=== PATIENT | female | born 1960 | race Two or more races ===

== ENCOUNTER 2020-12-26 06:53 | Inpatient (IN) | payer OTHER ==
[~2020-12-26] VITALS: Ht 177.8 cm; Wt 112.7 kg
[2020-12-26 07:28] LABS: Basophils # (auto) 0.1 10 ^3/uL (0-0.2); Eosinophils # (auto) 0.3 10 ^3/uL (0-0.8); Eosinophils % (auto) 4.7 % (0.0-7.0); Hematocrit 37.1 % (36.0-46.0); Hemoglobin 12.7 g/dL (12.2-16.2); Lymphocytes # (auto) 2.8 10 ^3/uL (0.4-5.4); Lymphocytes % (auto) 43.5 % (10.0-50.0); Mean Corpuscular Hemoglobin 30.9 pg (28.0-32.0); Mean Corpuscular Hgb Conc. 34.2 g/dL (32.0-36.0); Mean Corpuscular Volume 90.3 fL (80.0-100.0); Monocytes # (auto) 0.5 10 ^3/uL (0-1.3); Monocytes % (auto) 7.7 % (0.0-12.0); Neutrophils # (auto) 2.8 10 ^3/uL (1.6-8.6); Neutrophils % (auto) 43.1 % (37.0-80.0); Nucleated Red Blood Cells % 0.1 %; Red Blood Cells 4.11 10^6/uL (4.0-5.20); Red Cell Distribution Width 14.7 % (11.8-14.3); White Blood Cell 6.4 10^3/uL (4.4-10.8)
[2020-12-26 07:49] LABS: Salicylate < 1.7 mg/dL (2.8-20.0)
[2020-12-26 07:52] LABS: Acetaminophen 40.3 ug/mL (10-30)
[2020-12-26 07:54] LABS: Potassium 4.1 mmol/L (3.5-5.1)
[2020-12-26 08:04] LABS: Urine Bacteria FEW /hpf (None Seen); Urine Blood Negative /uL (Negative); Urine Mucus FEW (None Seen); Urine Specific Gravity 1.034 (1.001-1.035); Urine WBC 9 /hpf (0 - 5)
[2020-12-26 08:05] LABS: Albumin 3.2 g/dL (3.4-5.0); BUN/Creatinine Ratio 26.7; Bilirubin, Total 0.4 mg/dL (0.2-1.0); Calcium 8.3 mg/dL (8.5-10.1); Total Protein 6.6 g/dL (6.4-8.2)
[2020-12-26] MEDS ORDERED: ACETYLCYSTEINE ORAL for CIN 20%(200MG/ML) 4ML PO ONE (08:15)
[2020-12-26] MEDS ORDERED: SODIUM CHLORIDE 0.9% 1,000 ML IV ONE ×2 (08:15)
[2020-12-26 08:19] LABS: Alcohol, Urine < 3.0 mg/dL (0-10); Amphetamine Screen, Urine NEGATIVE (NEGATIVE); Barbiturate Scree,Urine NEGATIVE (NEGATIVE); Benzodiazephine Screen, Urine NEGATIVE (NEGATIVE); Cannabinoid Screen, Urine NEGATIVE (NEGATIVE); Cocaine Screen, Urine NEGATIVE (NEGATIVE); Opiate Scree,Urine NEGATIVE (NEGATIVE); Phencyclidine Screen, Urine NEGATIVE (NEGATIVE)
[2020-12-26] MEDS ORDERED: cefTRIAXone 1GM/50ML D5W 50 ML IV ONE (08:30)
[2020-12-26] MEDS ORDERED: DEXTROSE (50%) 50ML SYRG IV PRN (11:15)
[2020-12-26] MEDS ORDERED: ACETAMINOPHEN 500 MG TAB PO PRN (11:15)
[2020-12-26] MEDS ORDERED: TRAZ100T3 PO (11:35)
[2020-12-26] MEDS ORDERED: QUET400T PO (11:35)
[2020-12-26] MEDS: SODIUM CHLORIDE 0.9% 1,000 ML IV SCH ×2 (11:37→20:57)
[2020-12-26 11:41] LABS: Albumin 2.9 g/dL (3.4-5.0)
[2020-12-26 11:45] LABS: Alanine Aminotransferase 18 U/L (13-56); Alkaline Phosphatase 68 U/L (45-117); Aspartate Aminotransferase 18 U/L (15-37); Bilirubin, Direct < 0.1 mg/dL (0-0.2); Bilirubin, Total 0.2 mg/dL (0.2-1.0); Total Protein 6.2 g/dL (6.4-8.2)
[2020-12-26] MEDS: ACCU-CHEK COMFORT CURVE STRIP VI SCH ×3 (11:56→20:59)
[2020-12-26 17:00] VITALS: BP 109/78
[2020-12-26 17:34] LABS: Albumin 2.8 g/dL (3.4-5.0); Bilirubin, Direct < 0.1 mg/dL (0-0.2)
[2020-12-26 17:37] LABS: Alanine Aminotransferase 17 U/L (13-56); Alkaline Phosphatase 64 U/L (45-117); Aspartate Aminotransferase 14 U/L (15-37); Bilirubin, Total 0.2 mg/dL (0.2-1.0)
[2020-12-26] MEDS: TEMAZEPAM 15 MG CAP PO PRN (21:00)
[2020-12-26 22:53] VITALS: BP 120/77
[2020-12-26 23:52] LABS: Alanine Aminotransferase 17 U/L (13-56); Albumin 2.8 g/dL (3.4-5.0); Aspartate Aminotransferase 13 U/L (15-37); Bilirubin, Direct < 0.1 mg/dL (0-0.2)
[2020-12-26 23:54] LABS: Alkaline Phosphatase 67 U/L (45-117); Bilirubin, Total 0.2 mg/dL (0.2-1.0)
[2020-12-27 05:00] VITALS: BP 117/76
[2020-12-27 06:21] LABS: Basophils # (auto) 0 10 ^3/uL (0-0.2); Basophils % (auto) 0.7 % (0.0-2.0); Eosinophils # (auto) 0.4 10 ^3/uL (0-0.8); Hematocrit 36.2 % (36.0-46.0); Hemoglobin 12.6 g/dL (12.2-16.2); Lymphocytes # (auto) 2.5 10 ^3/uL (0.4-5.4); Lymphocytes % (auto) 34.7 % (10.0-50.0); Mean Corpuscular Hemoglobin 30.9 pg (28.0-32.0); Mean Corpuscular Hgb Conc. 34.8 g/dL (32.0-36.0); Mean Corpuscular Volume 88.7 fL (80.0-100.0); Monocytes # (auto) 0.5 10 ^3/uL (0-1.3); Monocytes % (auto) 6.5 % (0.0-12.0); Neutrophils # (auto) 3.8 10 ^3/uL (1.6-8.6); Neutrophils % (auto) 53.1 % (37.0-80.0); Red Blood Cells 4.08 10^6/uL (4.0-5.20); Red Cell Distribution Width 14.8 % (11.8-14.3); White Blood Cell 7.2 10^3/uL (4.4-10.8)
[2020-12-27 06:37] LABS: Albumin 2.9 g/dL (3.4-5.0); Anion Gap 5 (5-15); Blood Urea Nitrogen 14 mg/dL (7-18); Calcium 8.2 mg/dL (8.5-10.1); Carbon Dioxide 25 mmol/L (21-32); Chloride 110 mmol/L (98-107); Glucose 85 mg/dL (74-106); Potassium 4.1 mmol/L (3.5-5.1); Sodium 140 mmol/L (136-145)
[2020-12-27 06:42] LABS: Alanine Aminotransferase 19 U/L (13-56); Alkaline Phosphatase 73 U/L (45-117); Aspartate Aminotransferase 15 U/L (15-37); BUN/Creatinine Ratio 21.2; Bilirubin, Direct < 0.1 mg/dL (0-0.2); Bilirubin, Total 0.4 mg/dL (0.2-1.0); GFR African American 117 mL/min; GFR Non-African American 97 mL/min; Total Protein 6.2 g/dL (6.4-8.2)
[2020-12-27] MEDS: ACCU-CHEK COMFORT CURVE STRIP VI SCH ×4 (07:00→21:14)
[2020-12-27] MEDS: PROMETHAZINE HCL 25 MG/ML 1ML IV PRN ×2 (07:01→20:34)
[2020-12-27] MEDS: SODIUM CHLORIDE 0.9% 1,000 ML IV SCH ×2 (07:15→17:15)
[2020-12-27] MEDS: cefTRIAXone 1GM/50ML D5W 50 ML IV SCH (08:51)
[2020-12-27 09:00] VITALS: BP 137/90
[2020-12-27 12:09] LABS: Albumin 2.9 g/dL (3.4-5.0)
[2020-12-27 12:14] LABS: Alanine Aminotransferase 16 U/L (13-56); Alkaline Phosphatase 75 U/L (45-117); Aspartate Aminotransferase 14 U/L (15-37); Bilirubin, Direct < 0.1 mg/dL (0-0.2); Bilirubin, Total 0.3 mg/dL (0.2-1.0); Total Protein 6.4 g/dL (6.4-8.2)
[2020-12-27 13:00] VITALS: BP 134/90
[2020-12-27] MEDS: traMADol HCL 50 MG TAB PO PRN (16:37)
[2020-12-27 17:00] VITALS: BP 124/75
[2020-12-27] MEDS ORDERED: ACETYLCYSTEINE PO FOR APAP TOX 200 MG/ML ML PO ONE (17:00)
[2020-12-27 17:50] LABS: Alanine Aminotransferase 18 U/L (13-56); Albumin 3.3 g/dL (3.4-5.0); Alkaline Phosphatase 83 U/L (45-117); Aspartate Aminotransferase 14 U/L (15-37); Bilirubin, Direct < 0.1 mg/dL (0-0.2); Bilirubin, Total 0.2 mg/dL (0.2-1.0)
[2020-12-27] MEDS: Ensure HIGH Protein Chocolate 8oz Bottle PO SCH (18:00)
[2020-12-27] MEDS: QUEtiapine FUMARATE 100 MG TAB PO SCH (21:12)
[2020-12-27] MEDS: ACETYLCYSTEINE PO FOR APAP TOX 200 MG/ML ML PO SCH (21:13)
[2020-12-27] MEDS: traZODone HCL 50 MG TAB PO SCH (21:13)
[2020-12-27 21:39] VITALS: BP 141/93
[2020-12-27 23:35] LABS: Alanine Aminotransferase 22 U/L (13-56); Aspartate Aminotransferase 12 U/L (15-37); Bilirubin, Direct < 0.1 mg/dL (0-0.2)
[2020-12-27 23:38] LABS: Alkaline Phosphatase 75 U/L (45-117); Bilirubin, Total 0.2 mg/dL (0.2-1.0); Total Protein 6.8 g/dL (6.4-8.2)
[2020-12-28] MEDS: TEMAZEPAM 15 MG CAP PO PRN ×2 (00:54→21:10)
[2020-12-28] MEDS: traMADol HCL 50 MG TAB PO PRN (01:14)
[2020-12-28] MEDS: ACETYLCYSTEINE PO FOR APAP TOX 200 MG/ML ML PO SCH ×2 (01:14→05:54)
[2020-12-28 04:34] VITALS: BP 124/91
[2020-12-28] MEDS: PROMETHAZINE HCL 25 MG/ML 1ML IV PRN ×2 (04:35→11:42)
[2020-12-28] MEDS: SODIUM CHLORIDE 0.9% 1,000 ML IV SCH ×3 (04:35→23:22)
[2020-12-28] MEDS: ACCU-CHEK COMFORT CURVE STRIP VI SCH ×4 (06:06→21:22)
[2020-12-28] MEDS: MORPHINE SULFATE INJECTION 2 MG/ML SYRG IV PRN ×4 (06:26→21:20)
[2020-12-28 07:45] LABS: Basophils # (auto) 0 10 ^3/uL (0-0.2); Basophils % (auto) 0.4 % (0.0-2.0); Eosinophils # (auto) 0.1 10 ^3/uL (0-0.8); Eosinophils % (auto) 1.2 % (0.0-7.0); Hematocrit 38.1 % (36.0-46.0); Hemoglobin 13.3 g/dL (12.2-16.2); Lymphocytes # (auto) 1.5 10 ^3/uL (0.4-5.4); Lymphocytes % (auto) 16.8 % (10.0-50.0); Mean Corpuscular Hemoglobin 31.1 pg (28.0-32.0); Mean Corpuscular Volume 88.7 fL (80.0-100.0); Monocytes # (auto) 0.5 10 ^3/uL (0-1.3); Monocytes % (auto) 6.1 % (0.0-12.0); Neutrophils # (auto) 6.5 10 ^3/uL (1.6-8.6); Neutrophils % (auto) 75.5 % (37.0-80.0); Nucleated Red Blood Cells % 0.1 %; Red Blood Cells 4.29 10^6/uL (4.0-5.20); White Blood Cell 8.6 10^3/uL (4.4-10.8)
[2020-12-28 07:55] LABS: Albumin 3.1 g/dL (3.4-5.0); Calcium 8.8 mg/dL (8.5-10.1); Potassium 3.6 mmol/L (3.5-5.1)
[2020-12-28 07:58] LABS: BUN/Creatinine Ratio 27.3
[2020-12-28 08:00] LABS: Bilirubin, Total 0.3 mg/dL (0.2-1.0)
[2020-12-28 09:00] VITALS: BP 112/70
[2020-12-28] MEDS: cefTRIAXone 1GM/50ML D5W 50 ML IV SCH (09:09)
[2020-12-28] MEDS: Ensure HIGH Protein Chocolate 8oz Bottle PO SCH ×3 (09:09→18:02)
[2020-12-28] MEDS: QUEtiapine FUMARATE 100 MG TAB PO SCH ×2 (09:31→21:09)
[2020-12-28 13:00] VITALS: BP 115/75
[2020-12-28 17:00] VITALS: BP 113/63
[2020-12-28] MEDS: traZODone HCL 50 MG TAB PO SCH (21:10)
[2020-12-28 22:00] VITALS: BP 125/79
[2020-12-29 05:00] VITALS: BP 102/69
[2020-12-29] MEDS: MORPHINE SULFATE INJECTION 2 MG/ML SYRG IV PRN ×3 (05:50→20:34)
[2020-12-29] MEDS: ACCU-CHEK COMFORT CURVE STRIP VI SCH ×4 (06:29→20:38)
[2020-12-29 06:52] LABS: Basophils # (auto) 0 10 ^3/uL (0-0.2); Basophils % (auto) 0.6 % (0.0-2.0); Eosinophils # (auto) 0.3 10 ^3/uL (0-0.8); Eosinophils % (auto) 4.3 % (0.0-7.0); Hematocrit 35.9 % (36.0-46.0); Hemoglobin 12.1 g/dL (12.2-16.2); Lymphocytes # (auto) 2.8 10 ^3/uL (0.4-5.4); Lymphocytes % (auto) 43.7 % (10.0-50.0); Mean Corpuscular Hemoglobin 30.2 pg (28.0-32.0); Mean Corpuscular Hgb Conc. 33.6 g/dL (32.0-36.0); Mean Corpuscular Volume 89.7 fL (80.0-100.0); Monocytes # (auto) 0.4 10 ^3/uL (0-1.3); Monocytes % (auto) 6.9 % (0.0-12.0); Neutrophils # (auto) 2.8 10 ^3/uL (1.6-8.6); Neutrophils % (auto) 44.5 % (37.0-80.0); Nucleated Red Blood Cells % 0.1 %; Red Cell Distribution Width 14.9 % (11.8-14.3); White Blood Cell 6.3 10^3/uL (4.4-10.8)
[2020-12-29 07:12] LABS: Potassium 4.1 mmol/L (3.5-5.1)
[2020-12-29 07:15] LABS: BUN/Creatinine Ratio 24.6; Calcium 8.3 mg/dL (8.5-10.1)
[2020-12-29 09:00] VITALS: BP 94/60
[2020-12-29] MEDS: SODIUM CHLORIDE 0.9% 1,000 ML IV SCH ×2 (09:30→19:15)
[2020-12-29] MEDS: QUEtiapine FUMARATE 100 MG TAB PO SCH ×2 (09:30→20:28)
[2020-12-29] MEDS: Ensure HIGH Protein Chocolate 8oz Bottle PO SCH ×3 (09:30→18:08)
[2020-12-29] MEDS: cefTRIAXone 1GM/50ML D5W 50 ML IV SCH (09:30)
[2020-12-29 13:00] VITALS: BP 94/63
[2020-12-29 17:05] VITALS: BP 119/76
[2020-12-29] MEDS: traZODone HCL 50 MG TAB PO SCH (20:28)
[2020-12-29] MEDS: TEMAZEPAM 15 MG CAP PO PRN ×2 (21:53→22:09)
[2020-12-29 22:00] VITALS: BP 116/65
[2020-12-30 05:00] VITALS: BP 93/52
[2020-12-30] MEDS: SODIUM CHLORIDE 0.9% 1,000 ML IV SCH (05:15)
[2020-12-30] MEDS: ACCU-CHEK COMFORT CURVE STRIP VI SCH ×2 (06:22→11:30)
[2020-12-30 06:52] LABS: Basophils # (auto) 0 10 ^3/uL (0-0.2); Basophils % (auto) 0.3 % (0.0-2.0); Eosinophils # (auto) 0.3 10 ^3/uL (0-0.8); Eosinophils % (auto) 3.4 % (0.0-7.0); Hematocrit 35.4 % (36.0-46.0); Hemoglobin 12.6 g/dL (12.2-16.2); Lymphocytes # (auto) 1.8 10 ^3/uL (0.4-5.4); Lymphocytes % (auto) 21.2 % (10.0-50.0); Mean Corpuscular Hemoglobin 31.8 pg (28.0-32.0); Mean Corpuscular Hgb Conc. 35.6 g/dL (32.0-36.0); Mean Corpuscular Volume 89.2 fL (80.0-100.0); Monocytes # (auto) 0.4 10 ^3/uL (0-1.3); Monocytes % (auto) 4.6 % (0.0-12.0); Neutrophils # (auto) 6.1 10 ^3/uL (1.6-8.6); Neutrophils % (auto) 70.5 % (37.0-80.0); Nucleated Red Blood Cells % 0.1 %; Red Blood Cells 3.97 10^6/uL (4.0-5.20); Red Cell Distribution Width 14.8 % (11.8-14.3); White Blood Cell 8.7 10^3/uL (4.4-10.8)
[2020-12-30 07:34] LABS: Potassium 3.8 mmol/L (3.5-5.1)
[2020-12-30 07:47] LABS: BUN/Creatinine Ratio 27.9; Calcium 8.7 mg/dL (8.5-10.1)
[2020-12-30] MEDS: Ensure HIGH Protein Chocolate 8oz Bottle PO SCH (08:00)
[2020-12-30 09:00] VITALS: BP 103/64
[2020-12-30] MEDS: QUEtiapine FUMARATE 100 MG TAB PO SCH (09:15)
[2020-12-30] MEDS: cefTRIAXone 1GM/50ML D5W 50 ML IV SCH (09:15)
[2020-12-30] MEDS: MORPHINE SULFATE INJECTION 2 MG/ML SYRG IV PRN (09:16)
[2020-12-30] MEDS ORDERED: SULF400T11 PO (11:36)
[2020-12-30 13:00] VITALS: BP 92/59
[2020-12-30 13:18] VITALS: BP 92/59
== END 2020-12-30 13:58 | disposition home or self-care (01) | DRG 812 ==
LOC: EDBD 06:53 → ER 06:53 → OVERFLOW 10:37 → CENTRAL 12:40
PROVIDERS: ADMIT Internal Medicine; ATTEND Internal Medicine Pulmonary Disease
DX: T39.1X1A Poisoning by 4-Aminophenol derivatives, accidental (unintentional), initial encounter (principal); E44.0 Moderate protein-calorie malnutrition; E88.09 Other disorders of plasma-protein metabolism, not elsewhere classified; N39.0 Urinary tract infection, site not specified; F32.9 Major depressive disorder, single episode, unspecified; Z98.84 Bariatric surgery status; J98.11 Atelectasis; Z20.822 Contact with and (suspected) exposure to COVID-19; Y92.89 Other specified places as the place of occurrence of the external cause
CPT/HCPCS: 36415; 71045; 74176; 80048; 80053; 80076; 80307; 80329; 81001; 82962; 83036; 84443; 85025; 85049; 87086; 87426; 96361; 96365; G0378; J0696

== ENCOUNTER 2021-09-23 11:36 | Emergency (ER) | payer OTHER ==
[~2021-09-23] VITALS: Ht 170.2 cm; Wt 81.6 kg
[~2021-09-23 11:36] MED LIST: QUET400T PO; SULF400T11 PO; TRAZ100T3 PO
[2021-09-23 12:02] VITALS: BP 101/64
[2021-09-23] MEDS ORDERED: KETOROLAC TROMETH 30 MG/ML 1ML VIAL IV ONE (13:15)
[2021-09-23] MEDS ORDERED: IBUP800T27 PO (13:20)
== END 2021-09-23 13:40 | disposition home or self-care (01) ==
LOC: ER 11:36 → EDBD 11:36 → ER 13:35
DX: S82.491A Other fracture of shaft of right fibula, initial encounter for closed fracture (principal); X58.XXXA Exposure to other specified factors, initial encounter; Y93.89 Activity, other specified; Y92.89 Other specified places as the place of occurrence of the external cause; Y99.8 Other external cause status
CPT/HCPCS: 29515; 73610; 96374; 99283; J1885

== ENCOUNTER 2022-06-28 11:56 | Emergency (ER) | payer MEDICAID, OTHER ==
[~2022-06-28] VITALS: Ht 165.1 cm; Wt 77.2 kg
[~2022-06-28 11:56] MED LIST changes: +IBUP800T27 PO
[2022-06-28 13:05] VITALS: BP 120/82
[2022-06-28] MEDS ORDERED: CYCL-838 PO (16:48)
== END 2022-06-28 17:02 | disposition home or self-care (01) ==
LOC: EDBD 11:56 → ER 11:56
DX: S16.1XXA Strain of muscle, fascia and tendon at neck level, initial encounter (principal); M25.571 Pain in right ankle and joints of right foot; V98.8XXA Other specified transport accidents, initial encounter; Y93.89 Activity, other specified; Y92.89 Other specified places as the place of occurrence of the external cause; Y99.8 Other external cause status
CPT/HCPCS: 72040; 73610

== ENCOUNTER → 2022-10-13 | Outpatient (CLI) | payer MEDICAID ==
[~2022-10-13] MED LIST changes: +ALBUTEROL SULF 2.5 MG/0.5ML(0.5%) NEB SOLN ONE; +CYCL-838 PO
== END | disposition home or self-care (01) ==
LOC: RT 13:08
PROVIDERS: ATTEND Internal Medicine Pulmonary Disease
DX: J44.9 Chronic obstructive pulmonary disease, unspecified (principal)
CPT/HCPCS: 94060; 94727; 94729

== ENCOUNTER → 2022-10-13 | Outpatient (CLI) | payer MEDICAID ==
[~2022-10-13] MED LIST changes: -ALBUTEROL SULF 2.5 MG/0.5ML(0.5%) NEB SOLN ONE
== END | disposition home or self-care (01) ==
LOC: LAB 06:14
PROVIDERS: ATTEND Internal Medicine Pulmonary Disease
DX: Z01.812 Encounter for preprocedural laboratory examination (principal); Z20.822 Contact with and (suspected) exposure to COVID-19
CPT/HCPCS: 36415; 87426